=== PATIENT | female | born 1960 | race Hispanic/Latino ===

== ENCOUNTER 2018-11-09 21:09 | Inpatient (IN) | payer BC ==
[2018-11-09 21:27] LABS: #Eosinphils 0.2 thou/uL (0.0-0.7); #Lymphocytes 2.7 thou/uL (1.20-3.40); #Monocytes 0.5 thou/uL (0.11-0.59); #Neutrophils 4.5 thou/uL (1.40-6.50); %Basophils 0.6 % (0.0-1.0); %Lymphocytes 33.7 % (21.0-51.0); %Monocytes 5.7 % (0.0-10.0); %Neutrophils 56.9 % (42.0-75.0); Hemoglobin 14.5 g/dL (12.0-16.0); Mean Corpuscular HGB CONC 33.2 g/dL (32.0-36.0); Mean Corpuscular Volume 87.2 fL (78.0-98.0); Mean Platelet Volume 8.2 fL (7.4-10.4); Platelet Count 317 thou/uL (130-400); Red Blood Cell (RBC) Count 4.99 mill/uL (4.20-5.40); White Blood Cell (WBC) Count 7.9 thou/uL (4.8-10.8)
[2018-11-09 21:33] LABS: INR-International Normal Ratio 0.9; PTT 27.7 SEC (22.9-36.1); Prothrombin Time 12.3 SEC (12.0-14.7)
--- NOTE | 2018-11-09 21:38 | CT ---
CT HEAD WITHOUT IV CONTRAST COMPARISON: None HISTORY: Level 2 stroke. Patient with left arm numbness for 3 days. Left facial droop and decreased sensation on left side. TECHNIQUE: Axial CT imaging at 5 mm intervals from vertex through skull base without contrast FINDINGS: There is no evidence of an acute infarction, hemorrhage, mass effect, or midline shift. The ventricul ar system is normal in size, shape, and position. Visualized paranasal sinuses are clear. Osseous structures appear intact. IMPRESSION: 1. No acute intracranial abnormality demonstrated. 2. Above findings discussed with Dr. Story in the emergency department on 11/09/2018 at 2132 hours.
[2018-11-09 21:41] LABS: ALT (SGPT) 16 U/L (8-55); AST (SGOT) 26 U/L (5-34); Albumin 4.4 g/dL (3.5-5.0); Alkaline Phosphatase 111 U/L (40-150); Anion Gap 14 mmol/L (10-20); BUN (Urea Nitrogen) 20 mg/dL (9.8-20.1); Bilirubin, Total 0.5 mg/dL (0.2-1.2); CK (CPK) 90 U/L (29-168); Calc. Creatinine Clearance 0 mL/min (70-130); Calcium 9.9 mg/dL (7.8-10.44); Carbon Dioxide 27 mmol/L (22-29); Chloride 103 mmol/L (98-107); Estimated GFR-MDRD 58; Glucose 164 mg/dL (70-105); Potassium 4.2 mmol/L (3.5-5.1); Protein, Total 8.4 g/dL (6.0-8.3); Sodium 140 mmol/L (136-145)
--- NOTE | 2018-11-09 22:09 | CT ---
CTA of the head with IV contrast and 3-D reformatted imaging. CTA of the neck with IV contrast and 3-D reformatted imaging 3 D Volume Rendering: DATE: 11/09/2018 9:26 PM HISTORY: Left arm numbness for 3 days. Left-sided facial droop and decreased sensation on the left side. COMPARISON: None FINDINGS: RIGHT: CCA:No significant stenosis. ICA:No significant stenosis. MCA:No significant stenosis. SHARI:No significant stenosis. FLOW FLOOR ATTENDANT:No significant stenosis. LEFT: CCA:No significant stenosis. ICA:No significant stenosis. MCA:No significant stenosis. SHARI:No significant stenosis. FLOW FLOOR ATTENDANT:No significant stenosis. Vertebrobasilar System: Left Vertebral:No significant stenosis. Right Vertebral:No significant stenosis. Basilar:No significant stenosis. IMPRESSION: No hemodynamically significant stenosis, occlusion or aneurysmal dilation.
[2018-11-09] MEDS ORDERED: Aspirin Chewable 81 MG TAB ONE (22:33)
[2018-11-10 03:08] VITALS: BMI 31.4
[2018-11-10] MEDS ORDERED: Ondansetron ODT 4 MG TAB SL PRN (04:19)
[2018-11-10] MEDS ORDERED: Ondansetron PF 4 MG/2 ML Vial IVP PRN ×2 (04:19→06:22)
[2018-11-10] MEDS ORDERED: Acetaminophen 325 MG TAB PO PRN ×2 (04:19→06:22)
[2018-11-10] MEDS ORDERED: Dextrose 5% in Water 1,000 ML IV PRN (06:22)
[2018-11-10] MEDS ORDERED: Diabetic Tussin 200 MG/10 ML UDCUP PO PRN (06:22)
[2018-11-10] MEDS ORDERED: Zolpidem Tartrate 5 MG TAB PO PRN (06:22)
[2018-11-10] MEDS ORDERED: Ondansetron ODT 4 MG TAB PO PRN (06:22)
[2018-11-10] MEDS ORDERED: Cepastat Lozenges 1 LOZ PO PRN (06:22)
[2018-11-10] MEDS ORDERED: HYDROcodone/Acetaminophen 5/325 mg Tablet PO PRN (06:22)
[2018-11-10] MEDS ORDERED: Sodium Chloride 0.65% Nasal 44 ML BOT EA NARE PRN (06:22)
[2018-11-10] MEDS ORDERED: Calcium Carbonate 500 MG ChewTAB PO PRN (06:22)
[2018-11-10] MEDS ORDERED: hydrALAZINE 20 MG/ML VIAL SLOW IVP PRN (06:22)
[2018-11-10] MEDS ORDERED: Bisacodyl 5 MG TAB PO PRN (06:22)
[2018-11-10] MEDS ORDERED: Loratadine 10 MG TAB PO PRN (06:22)
[2018-11-10] MEDS ORDERED: Bisacodyl 10 MG SUPP PR PRN (06:22)
[2018-11-10] MEDS ORDERED: Loperamide HCl 2 MG CAP PO PRN (06:22)
[2018-11-10] MEDS ORDERED: HumaLOG 300 UNITS/3 ML VIAL SC PRN ×2 (06:22)
[2018-11-10] MEDS ORDERED: Senokot S 8.6-50 MG TAB PO PRN (06:22)
[2018-11-10] MEDS ORDERED: Dextrose 50% Abboject 50 ML SYRINGE SLOW IVP PRN (06:22)
[2018-11-10] MEDS ORDERED: Sodium Chloride 0.9% 1,000 ML IV SCH (06:30)
[2018-11-10 08:25] LABS: Hemoglobin A1c 6.1 % (4.0-6.0)
[2018-11-10 08:28] LABS: Cardiac Risk 3.2 (Less than 4.5)
[2018-11-10] MEDS ORDERED: Enoxaparin Sodium 40 MG/0.4 ML SYRINGE SC SCH (09:00)
[2018-11-10] MEDS ORDERED: Aspirin 325 mg Enteric Coated Tablet PO SCH (09:00)
[2018-11-10] MEDS ORDERED: Famotidine 20 MG TAB PO SCH (09:00)
--- NOTE | 2018-11-10 09:18 | MRI ---
MRI Brain WO Con: 11/10/2018 7:52 AM CLINICAL HISTORY: Stroke, weakness, keratitis sicca. COMPARISON: Head CT previous day FINDINGS: Extra axial spaces: Normal in size and morphology for the patient's age. Acute infarction: None. Ventricular system: Normal in size and morphology for the patient's age. Basal cisterns: Normal. Cerebral parenchyma: Microvascular ischemic changes. Midline shift: None. Cerebellum: Normal. Brainstem: Normal. Paranasal sinuses:Scattered mucosal thickening. IMPRESSION:No acute intracranial abnormality.
--- NOTE | 2018-11-10 11:19 | SS ---
DATE OF ADMISSION: 11/09/2018 DATE OF DISCHARGE: 11/10/2018 PRIMARY CARE PHYSICIAN: [facility] Call admission. REASON FOR ADMISSION: TIA/rule out CVA. HISTORY OF PRESENT ILLNESS: A 57-year-old female, who presented to emergency room with complaint of numbness feeling on the right side of face. She was also experiencing tingling and numbness sensation in left upper and lower extremity. The patient was also having headache, which was diffuse. The patient reports that she was in lot of stress. She was also feeling numbness and pressure sensation around the mouth. She did not have any slurred speech. She did not have any motor weakness. She did not have any unsteadiness. She denies any with similar problem in the past. This type of symptoms was going on for last 3 days without any specific precipitating or relieving factor. In the emergency room with this presentation, the patient had a stroke workup including CT brain, which was negative. CT [place] came back negative. The patient was admitted to Stroke Floor as a full admission from ER. When I saw this patient in the morning, at that time the patient was completely asymptomatic. All blood tests completely normal. The patient does not have any complaints at this point. We did MRI brain and that came back negative as well. The patient expressed her wish to go home later on today. We are waiting for echocardiography and Neurology opinion, after that the patient will be able to go home. REVIEW OF SYSTEMS: CONSTITUTIONAL: Negative for weight loss or gain, ability to conduct usual activities. SKIN: Negative for rash, itching. EYES: Negative for double vision, pain. ENT/MOUTH: Negative for nose bleeding, neck stiffness, pain, tenderness. CARDIOVASCULAR: Negative for palpitations, dyspnea on exertion, orthopnea. RESPIRATORY: Negative for shortness of breath, wheezing, cough, hemoptysis, fever or night sweats. GASTROINTESTINAL: Negative for poor appetite, abdominal pain, heartburn, nausea , vomiting, constipation, or diarrhea. GENITOURINARY: Negative for urgency, frequency, dysuria, nocturia. MUSCULOSKELETAL: Negative for pain, swelling. NEUROLOGIC/PSYCHIATRIC: Negative for anxiety, depression. ALLERGY/IMMUNOLOGIC: Negative for skin rash, bleeding tendency. Please see my HPI for pertinent positives and negatives. All other review of systems reviewed and negative except as mentioned in HPI. PAST MEDICAL HISTORY: Diabetes type 2 and hypertension. PAST SURGICAL HISTORY: Reviewed and negative. PAST PSYCHIATRIC HISTORY: Anxiety disorder. CURRENT HOME MEDICATIONS: 1. Amlodipine 10 mg p.o. daily. 2. Januvia with metformin 1 tablet p.o. daily. ALLERGIES: NO KNOWN DRUG ALLERGIES. FAMILY HISTORY: No strong family history of premature coronary artery disease, stroke, or cancer. EMERGENCY ROOM COURSE: The patient has received aspirin 325 mg. SOCIAL HISTORY: Patient is , denies tobacco or alcohol or drug abuse. PHYSICAL EXAMINATION: VITAL SIGNS: Currently; blood pressure 119/61, temperature 98.5, pulse 72, respiratory rate 18, and saturation 93% on room air. Weight 150 pounds. GENERAL: The patient is currently alert and oriented, no acute distress. HEENT: Head, normocephalic and atraumatic. Eyes, pupils are round and reactive to light. Extraocular muscle intact. ENT, oropharynx within normal limits. Moist mucous membranes. No oral lesion. No pharyngeal erythema. No exudate. NECK: Supple. No JVD. No thyromegaly. No carotid bruit. No jugular venous distention. LUNGS: Clear to auscultation without any rhonchi or rales. CARDIAC: S1 and S2. Regular without any murmur. No gallop. No rub. ABDOMEN: Soft. Bowel sounds present. Nontender and nondistended. No organomegaly. No mass. No suprapubic tenderness. BACK: Unremarkable. No CVA tenderness. EXTREMITIES: Upper extremity, passive movement of all joints are normal. Lower extremity, no edema. Good distal pulsation. SKIN: No skin rash. HEMATOLOGICAL SYSTEM: No lymphadenopathy. NEUROLOGIC: The patient is alert and oriented x3. Cranial nerves 2 through 12 intact. Motor and sensation within normal limits. Speech normal. No facial asymmetry. No cerebellar sign. Plantar bilateral flexor. Gait normal. PSYCHIATRIC: Normal affect. SIGNIFICANT LABS: MRI brain normal. CT [place] negative. CT brain normal. CBC; WBC 7.9, hemoglobin 14.5, and platelets 317. INR 0.9. BMP; sodium 140, potassium 4.2, chloride 103, carbon dioxide 27, BUN 20, creatinine 0.99, glucose 164, calcium 9.9, and hemoglobin A1c 6.1. LFT; AST 26, ALT 16, alkaline phosphatase 111, and albumin 4.4. Cardiac enzyme negative. Triglyceride 90, cholesterol 177, LDL 103, and HDL 56. EKG; normal sinus rhythm, within normal limits. ASSESSMENT AND PLAN: 1. Transient ischemic attack/rule out cerebrovascular accident. The patient clinical presentation is atypical. Her CT brain, CT [place] including MRI, everything came back negative and the patient's current neurological examination is normal. At this point, the patient is advised to continue aspirin 81 mg p.o. daily and Lipitor 40 mg p.o. at bedtime. Neurology has been consulted. Echocardiography will be obtained. If the patient cleared by Neurology, then we will consider discharging her home later on today. 2. Hypertension. The patient will resume amlodipine 10 mg p.o. daily upon discharge. 3. Diabetes type 2. The patient will resume Januvia with metformin 50/500 one tablet p.o. daily. 4. Obesity. Dietary education given. Weight loss education given. Healthy lifestyle measure discussed with the patient. 5. Deep venous thrombosis prophylaxis. Lovenox 40 mg subcu daily. 6. Gastrointestinal prophylaxis. Pepcid 20 mg p.o. b.i.d. 7. Code status. The patient is full code. The patient's is surrogate decision maker. 8. Blepharospasm: pt will need outpt neurology follow up DISPOSITION PLAN: After Neurology recommendation. All test result discussed with the patient. The patient is medically stable for discharge after Neurology evaluation. Echocardiography done. Job ID: [id number] MTDD
[2018-11-10 11:29] VITALS: TEMP 98.4
[2018-11-10 12:30] VITALS: BP 108/56
[2018-11-10 14:27] LABS: Bilirubin Negative (Negative); Blood, Urine Trace (Negative); Clarity CLEAR (Clear); Glucose, Urine (Dipstick) Negative (Negative); Leukocyte Small (Negative); Nitrite Negative (Negative); Protein, Urine (Dipstick) Negative (Neg-Trace); Specific Gravity, Urine 1.016 (1.002-1.036); Urobilinogen 0.2 mg/dL (0.2-1.0); pH, Urine 5.5 (5.0-9.0)
[2018-11-10 14:31] LABS: Bacteria/HPF None Seen HPF (None Seen); Hyaline Casts/LPF 0-3 HYALINE CAST LPF (0-3 Hyaline); Squamous Epithelial 0-3 HPF (0-3); WBC/HPF 0-3 HPF (0-3)
[2018-11-10] MEDS ORDERED: Atorvastatin Calcium 40 MG TAB PO SCH (21:00)
--- NOTE | 2018-11-10 22:25 | CON ---
DATE OF TELEMEDICINE CONSULTATION: 11/10/2018 ACCOMPANYING RN: Sebastian Stephens. CHIEF COMPLAINT: Headache. HISTORY OF PRESENT ILLNESS: The patient reports she has been having increased blinking for the last 4-5 months and she saw an eye doctor and was given drops for dry eyes and she has also been having some blurred vision and the blinking gets worse in bright lights and sunlight and she is not driving as much. She has complained of headache, mostly bifrontal headache, which started 3 days ago. She developed pain in the back and numbness on the left side, she is now back to baseline. She has not had regular migraine headaches. She is also reporting that sometimes she is grinding her teeth. No weakness of her musculature was reported. 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 PAST SURGICAL HISTORY: She had a 30 years ago. FAMILY HISTORY: She has 6 sisters and 2 brothers. One brother had a TIA. Her mother, brothers, and sister have hypertension. Her mother at 60 following complications of diabetes. Father of an AL at 62. SOCIAL HISTORY: She lives with her family. She does not smoke or drink. CURRENT WORKUP: MRI of the brain did not show any acute intracranial abnormality. LABORATORY WORKUP: White count 7.9, hematocrit 43.6, hemoglobin 14.5, platelets 317. Chemistry; sodium 140, potassium 4.2, chloride 103, BUN 20, creatinine 0.99, glucose 164, and lipid profile within normal limits. Urine, negative for any infection. REVIEW OF SYSTEMS: PULMONARY: Normal. Negative for shortness of breath and cough. HEMATOLOGIC: Negative for bleeding diathesis or clotting. DERMATOLOGIC: Negative for any rash or itching. NEUROLOGICAL: Positive for headache, increased blinking and left-sided numbness. OPHTHALMOLOGIC: Negative for vision problems. ENDOCRINE: Normal. Negative for any change in her diabetes. PHYSICAL EXAMINATION: VITAL SIGNS: Her blood pressure 132/75, pulse is 71. GENERAL APPEARANCE: Well-built, well-nourished lady, who seems to have blepharospasm. CHEST: Clear vesicular breathing. CARDIOVASCULAR: S1, S2 heard. No murmurs. ABDOMEN: Soft and nontender. No organomegaly noted. NEUROLOGIC: Higher intellectual functions normal. Orientation to time, place, and person and appropriate conversation. Cranial nerves; normal extraocular movements. Normal sensation of face bilaterally. Pupils are 2 mm, reactive. Tongue, midline, no atrophy noted. Normal elevation of palate. Normal hearing to finger rub bilaterally. Motor, bulk normal, tone normal, strength 5/5 throughout in iliopsoas, quadriceps, ankle dorsiflexion, plantar flexion, deltoid, biceps, triceps, wrist extension and flexion, finger extension and flexion bilaterally. Deep tendon reflexes are 2+ throughout. Sensory, normal to touch bilaterally. Cerebellar, normal [id number] and [id number]. Gait, not testable. Involuntary movements, she has blepharospasm bilaterally. IMPRESSION: The patient is a 57-year-old lady with a headache and left-sided numbness, which lasted 3 days, and all her symptoms have improved now and she is back to baseline. She never had regular headaches. She has no known family history or personal history of stroke. She does have stroke risk factors, mainly diabetes. Her MRI of the brain is negative for any acute stroke. Her examination was normal except for presence of blepharospasm which needs to be treated. RECOMMENDATIONS: Please have her see Dr. Watson or another neurologist in [facility] so she can receive Botox injections for blepharospasm which is a definitive therapy. Call me if you have any further questions. Job ID: [id number] [facility]
--- NOTE | 2018-11-11 12:07 | EKG ---
Test Reason : STROKE ALERT Blood Pressure : / mmHG Vent. Rate : 084 BPM Atrial Rate : 084 BPM P-R Int : 138 ms QRS Dur : 064 ms QT Int : 370 ms P-R-T Axes : 043 004 003 degrees QTc Int : 437 ms Normal sinus rhythm Minimal voltage criteria for LVH, may be normal variant Nonspecific ST abnormality Abnormal ECG Confirmed by BETTYE MENON M.D. ([id number]), multimedia editor JADE SHETH ([id number]) on 11/11/2018 12:07:11 PM Referred By: Confirmed By:BETTYE MENON M.D.
== END 2018-11-10 15:10 | disposition home or self-care (01) | DRG 69 ==
LOC: ERS 21:09 → 2SE 22:34
PROVIDERS: ADMIT Hospitalist; ATTEND Hospitalist
DX: G45.9 Transient cerebral ischemic attack, unspecified (principal); E11.9 Type 2 diabetes mellitus without complications; I10 Essential (primary) hypertension; F41.9 Anxiety disorder, unspecified; E66.9 Obesity, unspecified; G24.5 Blepharospasm; Z68.31 Body mass index [BMI] 31.0-31.9, adult
CPT/HCPCS: 36415; 36416; 70450; 70496; 70498; 70551; 80053; 80061; 81001; 82550; 83036; 84484; 85025; 85610; 85730; 90471; 90732; 93005; 93306; G0009; J1650

== ENCOUNTER 2019-09-27 08:30 | Emergency (ER) | payer BC ==
[2019-09-27 09:09] LABS: #Basophils 0.1 thou/uL (0.0-0.2); #Eosinphils 0.2 thou/uL (0.0-0.7); #Monocytes 0.4 thou/uL (0.11-0.59); #Neutrophils 3.5 thou/uL (1.40-6.50); %Basophils 1.4 % (0.0-1.0); %Eosinophils 2.8 % (0.0-10.0); %Lymphocytes 32.4 % (21.0-51.0); %Monocytes 5.8 % (0.0-10.0); %Neutrophils 57.6 % (42.0-75.0); Hemoglobin 14.8 g/dL (12.0-16.0); Mean Corpuscular HGB CONC 33.5 g/dL (32.0-36.0); Mean Corpuscular Hemoglobin 29.9 pg (27.0-31.0); Mean Corpuscular Volume 89.2 fL (78.0-98.0); Platelet Count 296 thou/uL (130-400); RBC Distribution Width 12.7 % (11.5-14.5); Red Blood Cell (RBC) Count 4.96 mill/uL (4.20-5.40); White Blood Cell (WBC) Count 6.1 thou/uL (4.8-10.8)
[2019-09-27] MEDS ORDERED: Ondansetron PF 4 MG/2 ML Vial ONE (09:32)
[2019-09-27] MEDS ORDERED: Fentanyl 100 MCG/2 ML VIAL ONE (09:32)
--- NOTE | 2019-09-27 09:48 | CT ---
CT BRAIN: DATE: 09/27/2019. PROVIDED CLINICAL HISTORY: Trauma. FINDINGS: Comparison 11/09/2018. The ventricular system appears normal in size and morphology. There is no evid ence for intracranial hemorrhage or mass effect. The extracranial soft tissues and osseous structure s demonstrate an unremarkable CT appearance. IMPRESSION: No evidence for intracranial hemorrhage or mass effect. POS: [facility]
--- NOTE | 2019-09-27 09:50 | RAD ---
PORTABLE CHEST: DATE: 09/27/2019. PROVIDED CLINICAL HISTORY: Trauma. FINDINGS: Cardiac and mediastinal silhouette is within normal limits for portable technique. No focal consolid ation, pleural fluid, or pneumothorax apparent. The bony thorax appears grossly intact. IMPRESSION: No evidence for an acute cardiopulmonary process. POS: [facility]
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
[2019-09-27 10:02] LABS: ALT (SGPT) 17 U/L (8-55); AST (SGOT) 36 U/L (5-34); Albumin 4.3 g/dL (3.5-5.0); Alkaline Phosphatase 116 U/L (40-110); Anion Gap 13 mmol/L (10-20); BUN (Urea Nitrogen) 12 mg/dL (9.8-20.1); Bilirubin, Total 0.9 mg/dL (0.2-1.2); Calc. Creatinine Clearance 0 mL/min (70-130); Calcium 9.8 mg/dL (7.8-10.44); Carbon Dioxide 25 mmol/L (22-29); Chloride 106 mmol/L (98-107); Estimated GFR-MDRD 85; Globulin 3.9 g/dL (2.4-3.5); Glucose 117 mg/dL (70-105); Potassium 4.5 mmol/L (3.5-5.1); Protein, Total 8.2 g/dL (6.0-8.3); Sodium 139 mmol/L (136-145)
[2019-09-27] MEDS ORDERED: Ketorolac Tromethamine 30 MG/ML VIAL ONE (10:15)
== END 2019-09-27 10:30 | disposition home or self-care (01) ==
LOC: ERS 08:30
DX: R07.89 Other chest pain (principal); M54.2 Cervicalgia; I10 Essential (primary) hypertension; E11.9 Type 2 diabetes mellitus without complications; Z79.84 Long term (current) use of oral hypoglycemic drugs; Z79.899 Other long term (current) drug therapy; V43.52XA Car driver injured in collision with other type car in traffic accident, initial encounter
CPT/HCPCS: 70450; 71045; 72125; 80053; 84484; 85025; 93005; 94760; 96374; 96375; J1885; J2405; J3010

== ENCOUNTER 2020-10-10 09:27 | Outpatient (CLI) | payer BC | END 2020-10-10 09:28 | disposition home or self-care (01) | LOC: BICMAMMO 09:27 | PROVIDERS: ATTEND Family Medicine | DX: Z12.31 Encounter for screening mammogram for malignant neoplasm of breast (principal) | CPT/HCPCS: 77063; 77067 ==

== ENCOUNTER 2020-11-12 08:12 | Outpatient (CLI) | payer BC | END 2020-11-12 08:13 | disposition home or self-care (01) | LOC: BICMAMMO 08:12 | PROVIDERS: ATTEND Family Medicine | DX: R92.2 Inconclusive mammogram (principal); N63.13 Unspecified lump in the right breast, lower outer quadrant | CPT/HCPCS: 77066; G0279 ==

== ENCOUNTER 2021-01-06 11:19 | Outpatient (CLI) | payer BC ==
[2021-01-06 12:36] LABS: #Basophils 0.1 10x3/uL (0.0-0.2); #Eosinphils 0.2 10x3/uL (0.0-0.5); #Monocytes 0.3 10x3/uL (0.0-1.1); #Neutrophils 3.5 10x3/uL (1.5-8.4); %Basophils 0.9 % (0.0-2.0); %Eosinophils 3.6 % (0.0-6.0); %Lymphocytes 29.7 % (18.0-47.0); %Monocytes 5.7 % (0.0-10.0); %Neutrophils 59.9 % (40.0-75.0); Hemoglobin 14.4 g/dL (12.0-15.5); Mean Corpuscular HGB CONC 32.3 g/dL (32.0-36.0); Mean Corpuscular Hemoglobin 28.6 pg (27.0-33.0); Mean Corpuscular Volume 88.7 fl (81.6-98.3); Mean Platelet Volume 11.4 fl (7.4-10.4); Platelet Count 291 10x3/uL (150-450); RBC Distribution Width 14.4 % (11.5-14.5); Red Blood Cell (RBC) Count 5.03 10x6/uL (3.90-5.03); White Blood Cell (WBC) Count 5.8 10x3/uL (3.5-10.5)
[2021-01-06 12:44] LABS: Anion Gap 13 mmol/L (10-20); BUN (Urea Nitrogen) 18 mg/dL (9.8-20.1); Calc. Creatinine Clearance 0 mL/min (70-130); Calcium 9.5 mg/dL (7.8-10.44); Carbon Dioxide 25 mmol/L (22-29); Chloride 107 mmol/L (98-107); Glucose 165 mg/dL (70-105); Potassium 4.1 mmol/L (3.5-5.1); Sodium 141 mmol/L (136-145)
[2021-01-06 20:10] LABS: SARS-CoV-2 PCR by NAA Not Detected (NotDetected)
== END 2021-01-06 11:20 | disposition home or self-care (01) ==
LOC: LABBT 11:19
PROVIDERS: ATTEND Specialist
DX: Z01.818 Encounter for other preprocedural examination (principal); N63.0 Unspecified lump in unspecified breast; Z20.822 Contact with and (suspected) exposure to COVID-19
CPT/HCPCS: 80048; 85025; 93005; 93010; U0003; U0005

== ENCOUNTER 2021-01-08 06:40 | Day surgery (SDC) | payer BC ==
[2021-01-07 10:28] VITALS: BMI 28.5
[2021-01-08] MEDS ORDERED: Acetaminophen 500 MG TAB ONE (08:03)
[2021-01-08] MEDS ORDERED: Ketorolac Tromethamine 30 MG/ML VIAL ONE (08:03)
[2021-01-08] MEDS ORDERED: Bupivacaine 0.25% HCL 30 ML VIAL ONE (08:24)
[2021-01-08] MEDS ORDERED: Lidocaine 1% w/Epinephrine 1:100K 20 ML VIAL ONE (08:24)
[2021-01-08] MEDS ORDERED: Fentanyl 100 MCG/2 ML VIAL ONE ×2 (08:53→11:38)
[2021-01-08] MEDS ORDERED: Lidocaine 1% PF 5 ML VIAL ONE (09:13)
[2021-01-08] MEDS ORDERED: ePHEDrine 50 MG/ML VIAL ONE (09:13)
[2021-01-08] MEDS ORDERED: PHENYLEPHRINE-NS 100 MCG/ML 10 ML SYRINGE ONE (09:13)
[2021-01-08] MEDS ORDERED: PROPOFOL 200 MG/20 ML VIAL ONE (09:13)
[2021-01-08] MEDS ORDERED: Ondansetron PF 4 MG/2 ML Vial ONE (09:13)
[2021-01-08] MEDS ORDERED: Propofol 1,000 MG/100 ML VIAL IV ONE (11:38)
== END 2021-01-08 12:42 | disposition home or self-care (01) ==
LOC: SDC 06:40
PROVIDERS: ATTEND Specialist
PROC: 0HBT0ZZ Excision of Right Breast, Open Approach (ICD-10-PCS; principal; 2021-01-08)
DX: N60.31 Fibrosclerosis of right breast (principal); N60.21 Fibroadenosis of right breast; E11.9 Type 2 diabetes mellitus without complications; I10 Essential (primary) hypertension; M19.90 Unspecified osteoarthritis, unspecified site; E78.00 Pure hypercholesterolemia, unspecified; Z79.52 Long term (current) use of systemic steroids; Z79.84 Long term (current) use of oral hypoglycemic drugs; Z79.899 Other long term (current) drug therapy
CPT/HCPCS: 76098; 88307; 88341; 88342; J0690; J1885; J2405; J2704; J3010; J3490; S0020

== ENCOUNTER 2021-06-10 10:26 | Outpatient (CLI) | payer BC | END 2021-06-10 10:27 | disposition home or self-care (01) | LOC: BICRAD 10:26 | PROVIDERS: ATTEND Specialist | DX: N63.0 Unspecified lump in unspecified breast (principal) | CPT/HCPCS: 71046 ==

== ENCOUNTER 2022-01-01 15:01 | Outpatient (CLI) | payer OTHER | END 2022-01-01 15:02 | disposition home or self-care (01) | LOC: BICMAMMO 15:01 | PROVIDERS: ATTEND Family Medicine | DX: Z12.31 Encounter for screening mammogram for malignant neoplasm of breast (principal); Z91.89 Other specified personal risk factors, not elsewhere classified | CPT/HCPCS: 77063; 77067 ==

== ENCOUNTER 2024-05-31 07:53 | Outpatient (CLI) | payer OTHER | END 2024-05-31 07:54 | disposition home or self-care (01) | LOC: ULT 07:53 | PROVIDERS: ATTEND Family Medicine | DX: R10.30 Lower abdominal pain, unspecified (principal) | CPT/HCPCS: 76700 ==